=== PATIENT | female | born 1980 | race Caucasian/White ===

== ENCOUNTER → 2017-09-27 | Outpatient (CLI) | payer OTHER ==
[~2017-09-27] MED LIST: IBUP-1459 PO
--- NOTE | 2017-09-27 15:29 | DIAGNOSTIC IMAGING REPORT ---
LEFT KNEE 2 VIEWS CLINICAL HISTORY: Left knee pain. FINDINGS: AP and lateral views of left knee are obtained. No prior studies are available for comparison at the time of dictation. The skeletal structures are well mineralized. No fracture is seen. The joint spaces of the knee are preserved. No joint effusion is identified. The overlying soft tissues are within normal limits. IMPRESSION: Unremarkable radiographic assessment of the left knee. Electronically signed by: Elier Quick M.D. 09/27/2017 3:27 PM Dictated Date/Time: 09/27/2017 3:27 PM
--- NOTE | 2017-09-27 15:59 | DIAGNOSTIC IMAGING REPORT ---
LUMBAR SPINE 5 VIEWS HISTORY: LEFT KNEE PAIN, BACK PAIN COMPARISON: None. FINDINGS: There is no fracture. No subluxation. 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 There is a hypoplastic S1-S2 disc space. No significant disc space narrowing. The sacrum appears intact. IMPRESSION: No fracture or subluxation within the lumbar spine. Electronically signed by: Justino Gauthier M.D. 09/27/2017 3:57 PM Dictated Date/Time: 09/27/2017 3:55 PM
== END | disposition home or self-care (01) ==
LOC: C.RAD1850 14:57
PROVIDERS: ATTEND Nurse Practitioner Adult Health
DX: M25.562 Pain in left knee (principal); M54.5 Low back pain